=== PATIENT | male | born 1980 | race Asian ===

== ENCOUNTER 2017-11-27 12:23 | Emergency (ER) | payer BC, OTHER ==
[~2017-11-27] VITALS: Ht 172.7 cm; Wt 85.5 kg
[2017-11-27 12:38] VITALS: TEMP 36.6; Ht 172.7 cm; Wt 85.5 kg
[2017-11-27] MEDS ORDERED: XYLOCAINE 1%/SOD BICARB 20 ML VIAL INFIL ONE (13:00)
--- NOTE | 2017-11-27 13:17 | DIAGNOSTIC IMAGING REPORT ---
LEFT THUMB 3 VIEWS CLINICAL HISTORY: Laceration. FINDINGS: 3 views of the left thumb are obtained. No prior studies are available for comparison at the time of dictation. The skeletal structures are well mineralized. No fracture is seen. The first metacarpophalangeal and interphalangeal joints are maintained. Mild soft tissue edema is noted in the thumb. A 5 mm radiodensity at the dermal surface at the level of the interphalangeal joint may represent a small foreign body. IMPRESSION: 1. No acute bony abnormality is identified. 2. Question a 5 mm radiodense foreign body at the dermal surface at the level of the interphalangeal joint. Clinical correlation will be required. Electronically signed by: Masoud Evans M.D. 11/27/2017 1:16 PM Dictated Date/Time: 11/27/2017 1:14 PM
[2017-11-27 14:30] VITALS: BP 110/70; PULSE 68; O2SAT 97
[2017-11-27] MEDS ORDERED: CEPH500C PO (14:52)
--- NOTE | 2017-11-27 14:58 | EMERGENCY ROOM VISIT NOTE ---
History First contact with patient: 12:42 Chief Complaint: LACERATION/CUT (SUT/DERMABOND) Stated Complaint: CUT ON FINGER Nursing Triage Summary: cut left 1st finger with a knife this morning while trying to cut something on a wall Sent to ED by [facility] for repair of laceration History of Present Illness The patient is a 37 year old male who presents to the Emergency Room with complaints of a laceration to his left thumb. The patient states that he was angry and was stabbing something on the wall with a knife when he accidentally missed and cut his thumb. He did not injure himself on purpose. He states the injury occurred this morning, approximately 5 hours ago. He was seen at [facility] and sent here for further evaluation. He rates his current discomfort a 2/10. He believes his tetanus is up-to-date. He denies any numbness or weakness. Review of Systems A complete 6 point review of systems was reviewed with the patient with pertinent positives and negatives as per history of present illness. All else were negative. Past Medical/Surgical History Medical Problems: (1) No significant active problems Social History Smoking Status: Never Smoker Housing Status: lives with family Occupation Status: employed Current/Historical Medications Scheduled Cephalexin Monohydrate (Keflex), 500 MG PO QID Physical Exam Vital Signs Date Time Temp Pulse Resp B/P (MAP) Pulse Ox O2 Delivery O2 Flow Rate FiO2 11/27/17 14:30 68 16 110/70 97 Room Air 11/27/17 12:38 36.6 97 16 135/88 97 Room Air Physical Exam VITALS: Vitals are noted on the nurse's note and reviewed by myself. Vital signs stable. GENERAL: This is a 37-year-old male, in no acute distress, nondiaphoretic, well- developed well-nourished. SKIN: There is a 4 centimeter C-shaped flap-like laceration to the dorsal aspect of the left thumb, overlying the IP. There is active bleeding. The joint capsule can be seen in the base of the wound. The extensor tendon is not well-visualized. No bone seen in the base of the wound. There is a small foreign body attached loosely to the subcutaneous tissue which appears consistent with a small portion of the joint capsule. MUSCULOSKELETAL: Full range of motion of the left thumb. Capillary refill within 2 seconds. NEURO: Patient was alert and oriented to person place and time. Medical Decision & Procedures ER Provider Diagnostic Interpretation: LEFT THUMB 3 VIEWS CLINICAL HISTORY: Laceration. FINDINGS: 3 views of the left thumb are obtained. No prior studies are available for comparison at the time of dictation. The skeletal structures are well mineralized. No fracture is seen. The first metacarpophalangeal and interphalangeal joints are maintained. Mild soft tissue edema is noted in the thumb. A 5 mm radiodensity at the dermal surface at the level of the interphalangeal joint may represent a small foreign body. IMPRESSION: 1. No acute bony abnormality is identified. 2. Question a 5 mm radiodense foreign body at the dermal surface at the level of the interphalangeal joint. Clinical correlation will be required. Procedure Verbal consent was obtained to perform the procedure. Using sterile technique the wound was cleaned with Betadine. The area was sterilely draped. 6 ml of 1 % buffered lidocaine was used to perform a digital block to anesthetize the left thumb. Once the patient was anesthetized, the wound was copiously irrigated under pressure with sterile saline. The wound was explored. Small amount of debridement was performed. The laceration was repaired using 12 simple interrupted 5-0 nylon sutures with the wound edges being approximated. The patient tolerated the procedure well. Hemostasis was achieved. The area was cleaned with sterile saline and dressed with bacitracin ointment and bandage. Medical Decision Differential diagnosis includes laceration, tendon laceration, fracture, among others. The patient was evaluated as above. He sustained a laceration to his left thumb. Laceration repair was performed as noted in the procedure section. Unfortunately, there was a significant amount of edema to the flap of skin and this did not approximate satisfactorily. The joint capsule was seen in the base of the wound although the extensor tendon was not well visualized due to a significant amount of bleeding despite use of a tourniquet. I feel that the patient will need orthopedic follow-up for further evaluation of this once the swelling has decreased and the laceration can be more adequately assessed. I discussed the case with Dr. Bui of orthopedics, who will see the patient early this week for a recheck. The patient will be placed on Keflex to prevent infection. He was placed in a metal finger splint. Wound care instructions were discussed with the patient. He will return here immediately for any signs of infection. He verbalized understanding of my assessment and treatment plan and was discharged home in good condition. Medication Reconcilliation Current Medication List: was personally reviewed by me Blood Pressure Screening Patient's blood pressure: Normal blood pressure Impression Primary Impression: Laceration of finger Departure Information Dispostion Home / Self-Care Condition GOOD Prescriptions Cephalexin Monohydrate (Keflex) 500 Mg Cap 500 MG PO QID for 7 Days, #28 CAP Prov: Kait Burnett, CASSY 11/27/17 Referrals No Doctor, Assigned (PCP) Alejandro Bui D.O. Patient Instructions My [facility] Additional Instructions You have received sutures on your thumb. These sutures are NOT dissolvable and WILL need to be removed by a health care provider. Contact [facility] first thing Wednesday and ask for an appointment with Dr. Bui. He should be able to see you on Wednesday. If there are any issues making this appointment, contact the emergency department and ask to speak to case management. You were prescribed Keflex to be taken 4 times daily as prescribed. This is an antibiotic. All antibiotics have the potential to cause diarrhea. Stop this medication and contact a medical provider if you were to develop any significant adverse side effects including: wheezing, shortness of breath, passing out, vomiting, or a diffuse rash. Always take antibiotics as directed and COMPLETE the ENTIRE course regardless of the improvement of your symptoms. Proper wound care is essential for adequate wound healing and infection prevention. You can shower and clean the wound with soap and water. Do not scour over the wound, pat dry with a towel. Do not submerse the wound (i.e. bathe or dish wash) until the sutures have been removed. You can use an antibiotic ointment with a dressing over the wound for the next 3-4 days. After this time you may leave the wound dry and open to the air. If crust develops over the wound you can use a Q-tip to apply a 1:1 peroxide:water solution to clean the wound. Look for signs of infection of the wound including: increased pain, swelling, foul discharge, streaking, or increased temperature. If any of these are noticed you should return to the Emergency Department for further assessment and treatment. As with any laceration you may have received nerve damage to the surrounding tissues. This damage may or may not be permanent. For pain control, you can use the following [id number] medicines (if >12 yo): - Regular strength (325mg/tab) Tylenol (acetaminophen) 2 tabs every 4-6 hours as needed. Do not exceed 12 tablets in a 24 hour period. Avoid taking more than 4 grams (4000 mg) of Tylenol per day. This includes any other sources of acetaminophen you may take on a regular basis. - Regular strength (200 mg/tab) Advil (ibuprofen) 1-2 tabs every 4-6 hours as needed. Do not exceed a dose of 3200 mg per day. Keep the metal splint in place until follow-up with orthopedics. Return to the emergency department if your symptoms worsen despite treatment course outlined above. Problem Qualifiers Primary Impression: Laceration of finger Encounter type: initial encounter Finger: thumb Damage to nail status: without damage Foreign body presence: without foreign body Laterality: left Qualified Codes: S61.012A - Laceration without foreign body of left thumb without damage to nail, initial encounter
== END 2017-11-27 15:20 | disposition home or self-care (01) ==
LOC: C.EDB 12:24 → C.EDD 15:20
DX: S61.012A Laceration without foreign body of left thumb without damage to nail, initial encounter (principal); W26.0XXA Contact with knife, initial encounter